=== PATIENT | male | born 1960 | race Caucasian/White ===

== ENCOUNTER 2022-02-20 12:22 | Inpatient (IN) | payer MEDICARE ==
[~2022-02-20 12:22] MED LIST: Iopamidol 370 76% 100 ML VIAL ONE
[2022-02-20] MEDS ORDERED: hydrALAZINE 20 MG/ML VIAL SLOW IVP PRN (12:25)
[2022-02-20] MEDS ORDERED: Calcium Carbonate 500 MG ChewTAB PO PRN (12:27)
[2022-02-20] MEDS ORDERED: Ondansetron PF 4 MG/2 ML Vial IVP PRN (12:27)
[2022-02-20] MEDS ORDERED: Senokot S 8.6-50 MG TAB PO PRN (12:27)
[2022-02-20] MEDS ORDERED: Ondansetron ODT 4 MG TAB PO PRN (12:27)
[2022-02-20] MEDS ORDERED: Acetaminophen 325 MG TAB PO PRN (12:27)
[2022-02-20] MEDS ORDERED: Lorazepam 2 MG/ML VIAL IM PRN (12:29)
[2022-02-20] MEDS ORDERED: Lorazepam 1 MG TAB PO PRN (12:29)
[2022-02-20] MEDS ORDERED: Electrolyte Replacement Protocol 1 EACH FS SCH (12:30)
[2022-02-20] MEDS ORDERED: Folic Acid 1 MG TAB PO SCH (13:00)
[2022-02-20] MEDS ORDERED: Nicotine 14 MG PATCH TD PRN (13:00)
[2022-02-20 14:23] VITALS: BMI 22.6
[2022-02-20] MEDS: Thiamine HCl 200 MG/2 ML VIAL SLOW IVP SCH (14:40)
[2022-02-20] MEDS ORDERED: Meclizine HCl 25 MG TAB PO PRN (18:59)
[2022-02-20 21:38] LABS: Cardiac Risk 6.2 (Less than 4.5)
[2022-02-20] MEDS: Atorvastatin Calcium 40 MG TAB PO SCH (22:21)
[2022-02-20] MEDS: pyridOXINE 50 MG (B6) TAB PO SCH (22:22)
[2022-02-20] MEDS: Heparin 5,000 UNITS/ML VIAL SC SCH (22:22)
[2022-02-20] MEDS: Famotidine 20 MG TAB PO SCH (22:22)
[2022-02-21 05:28] LABS: Anion Gap 12 mmol/L (10-20); BUN (Urea Nitrogen) 12 mg/dL (8.4-25.7); Calc. Creatinine Clearance 81 mL/min (70-130); Calcium 9.1 mg/dL (7.8-10.44); Carbon Dioxide 25 mmol/L (23-31); Chloride 103 mmol/L (98-107); Estimated GFR 98; Glucose 93 mg/dL (80-115); Magnesium 1.8 mg/dL (1.6-2.6); Phosphorus 3.4 mg/dL (2.3-4.7); Potassium 3.8 mmol/L (3.5-5.1); Sodium 136 mmol/L (136-145)
[2022-02-21 05:32] LABS: Cardiac Risk 6.4 (Less than 4.5); Cholesterol 296 mg/dl (< 200 Desired); HDL Cholesterol 46 mg/dL (>60 Neg Risk); LDL Cholesterol, Calculated 223 mg/dL; Triglycerides 137 mg/dL (Less than 150)
[2022-02-21 05:38] LABS: #Eosinphils 0.2 10x3/uL (0.0-0.5); #Monocytes 0.8 10x3/uL (0.0-1.1); #Neutrophils 5.1 10x3/uL (1.5-8.4); %Basophils 0.5 % (0.0-2.0); %Eosinophils 1.9 % (0.0-6.0); %Lymphocytes 23.3 % (18.0-47.0); %Monocytes 10.4 % (0.0-10.0); %Neutrophils 63.5 % (40.0-75.0); Hemoglobin 14.4 g/dL (13.5-17.5); Mean Corpuscular HGB CONC 34.5 g/dL (32.0-36.0); Mean Corpuscular Hemoglobin 29.9 pg (27.0-33.0); Mean Corpuscular Volume 86.5 fl (81.2-95.1); Mean Platelet Volume 9.3 fl (7.4-10.4); Platelet Count 298 10x3/uL (150-450); RBC Distribution Width 13.4 % (11.5-14.5); Red Blood Cell (RBC) Count 4.82 10x6/uL (4.32-5.72)
[2022-02-21] MEDS ORDERED: Magnesium 2 GM/50 ML(in water) 2 GM in Premix Bag 1 BAG IVPB SCH (06:00)
[2022-02-21] MEDS: Multivit, Therapeutic 1 TAB PO SCH (09:32)
[2022-02-21] MEDS: Famotidine 20 MG TAB PO SCH ×2 (09:32→20:32)
[2022-02-21] MEDS: Folic Acid 1 MG TAB PO SCH (09:32)
[2022-02-21] MEDS: Aspirin 81 mg Enteric Coated Tablet PO SCH (09:32)
[2022-02-21] MEDS: Heparin 5,000 UNITS/ML VIAL SC SCH ×2 (09:35→20:33)
[2022-02-21] MEDS ORDERED: Lorazepam 1 MG TAB PO PRN (12:29)
[2022-02-21] MEDS: Thiamine HCl 200 MG/2 ML VIAL SLOW IVP SCH (13:18)
[2022-02-21] MEDS: Atorvastatin Calcium 40 MG TAB PO SCH (20:32)
[2022-02-21] MEDS: pyridOXINE 50 MG (B6) TAB PO SCH (20:32)
[2022-02-21] MEDS: Hydrocortisone 2.5% Cream 30 GM TUBE TOP SCH (20:33)
[2022-02-22] MEDS: Hydrocortisone 2.5% Cream 30 GM TUBE TOP SCH ×2 (09:08→21:02)
[2022-02-22] MEDS: Heparin 5,000 UNITS/ML VIAL SC SCH ×2 (09:09→21:02)
[2022-02-22] MEDS: Folic Acid 1 MG TAB PO SCH (09:09)
[2022-02-22] MEDS: Famotidine 20 MG TAB PO SCH ×2 (09:09→21:02)
[2022-02-22] MEDS: Multivit, Therapeutic 1 TAB PO SCH (09:09)
[2022-02-22] MEDS: Aspirin 81 mg Enteric Coated Tablet PO SCH (09:09)
[2022-02-22] MEDS: Polyethylene Glycol 3350 17 GM Packet PO SCH (09:09)
[2022-02-22] MEDS ORDERED: Lorazepam 1 MG TAB PO PRN (12:29)
[2022-02-22] MEDS ORDERED: Lorazepam 0.5 MG TAB PO SCH (12:30)
[2022-02-22] MEDS: Thiamine HCl 200 MG/2 ML VIAL SLOW IVP SCH (13:07)
[2022-02-22 14:16] LABS: Hemoglobin A1c 5.1 % (4.0-6.0)
[2022-02-22] MEDS: pyridOXINE 50 MG (B6) TAB PO SCH (21:02)
[2022-02-22] MEDS: Atorvastatin Calcium 40 MG TAB PO SCH (21:02)
[2022-02-23] MEDS: Heparin 5,000 UNITS/ML VIAL SC SCH ×2 (09:32→20:40)
[2022-02-23] MEDS: Polyethylene Glycol 3350 17 GM Packet PO SCH (09:32)
[2022-02-23] MEDS: Hydrocortisone 2.5% Cream 30 GM TUBE TOP SCH ×2 (09:32→20:42)
[2022-02-23] MEDS: Aspirin 81 mg Enteric Coated Tablet PO SCH (09:33)
[2022-02-23] MEDS: Multivit, Therapeutic 1 TAB PO SCH (09:33)
[2022-02-23] MEDS: Famotidine 20 MG TAB PO SCH ×2 (09:33→20:39)
[2022-02-23] MEDS: Folic Acid 1 MG TAB PO SCH (09:33)
[2022-02-23] MEDS ORDERED: Polyethylene Glycol 3350 17 GM Packet PO PRN (11:20)
[2022-02-23] MEDS ORDERED: Lorazepam 0.5 MG TAB PO PRN (12:29)
[2022-02-23] MEDS ORDERED: Thiamine 100 MG TAB PO SCH (13:00)
[2022-02-23] MEDS: pyridOXINE 50 MG (B6) TAB PO SCH (20:39)
[2022-02-23] MEDS: Senokot S 8.6-50 MG TAB PO SCH (20:39)
[2022-02-23] MEDS: Atorvastatin Calcium 40 MG TAB PO SCH (20:39)
[2022-02-24] MEDS: Heparin 5,000 UNITS/ML VIAL SC SCH (08:51)
[2022-02-24] MEDS: Polyethylene Glycol 3350 17 GM Packet PO SCH (08:51)
[2022-02-24] MEDS: Senokot S 8.6-50 MG TAB PO SCH (08:52)
[2022-02-24] MEDS: Aspirin 81 mg Enteric Coated Tablet PO SCH (08:52)
[2022-02-24] MEDS: Multivit, Therapeutic 1 TAB PO SCH (08:52)
[2022-02-24] MEDS: Folic Acid 1 MG TAB PO SCH (08:52)
[2022-02-24] MEDS: Famotidine 20 MG TAB PO SCH (08:52)
[2022-02-24] MEDS: Hydrocortisone 2.5% Cream 30 GM TUBE TOP SCH (08:52)
[2022-02-24 12:28] VITALS: BP 138/60; TEMP 98.8
== END 2022-02-24 12:58 | disposition swing bed (61) | DRG 66 ==
LOC: CSHTELE 12:22 → INTOOBSV 12:22 → OBSVTOIN 02-21 07:59
PROVIDERS: ADMIT Internal Medicine; ATTEND Family Medicine
DX: I63.81 Other cerebral infarction due to occlusion or stenosis of small artery (principal); K64.8 Other hemorrhoids; E78.00 Pure hypercholesterolemia, unspecified; M54.9 Dorsalgia, unspecified; G89.29 Other chronic pain; F12.10 Cannabis abuse, uncomplicated; F10.20 Alcohol dependence, uncomplicated; K62.3 Rectal prolapse; F17.210 Nicotine dependence, cigarettes, uncomplicated; R42 Dizziness and giddiness; R53.1 Weakness; C44.311 Basal cell carcinoma of skin of nose; I35.0 Nonrheumatic aortic (valve) stenosis; Z20.822 Contact with and (suspected) exposure to COVID-19; Z91.14 Patient's other noncompliance with medication regimen; Z83.3 Family history of diabetes mellitus; Z71.6 Tobacco abuse counseling; Z82.3 Family history of stroke; Z79.899 Other long term (current) drug therapy
CPT/HCPCS: 36415; 70496; 70498; 70551; 80048; 80061; 82607; 83036; 83735; 84100; 84443; 85025; 87040; 93306; 93880; 94760; 96372; 96374; 96375; G0378; J1644; J3411; J3475; Q9967; U0003; U0005

== ENCOUNTER 2022-03-04 08:56 | Day surgery (SDC) | payer MEDICARE ==
[2022-03-03 11:03] VITALS: BMI 23.3
[~2022-03-04 08:56] MED LIST changes: +Bupivacaine PF 0.5% 30 ML VIAL ONE; +EPINEPHrine 1 MG/ML AMP ONE; -Iopamidol 370 76% 100 ML VIAL ONE; +Lidocaine 2% 6 ML SYR ONE
[2022-03-04] MEDS ORDERED: PROPOFOL 20 ML ONE (10:20)
[2022-03-04] MEDS ORDERED: Fentanyl 250 MCG/5 ML VIAL ONE (10:21)
[2022-03-04] MEDS ORDERED: CEFAZOLIN 2 GM VIAL ONE (10:30)
[2022-03-04] MEDS ORDERED: Acetaminophen 325 MG TAB PO PRN (11:53)
[2022-03-04] MEDS ORDERED: HYDROcodone/Acetaminophen 5/325 mg Tablet PO PRN (11:53)
== END 2022-03-04 12:50 | disposition home or self-care (01) ==
LOC: CSHSDC 08:56
PROVIDERS: ATTEND Surgery
PROC: 06BY0ZC Excision of Hemorrhoidal Plexus, Open Approach (ICD-10-PCS; principal; 2022-03-04)
DX: K64.2 Third degree hemorrhoids (principal); K55.069 Acute infarction of intestine, part and extent unspecified; E78.5 Hyperlipidemia, unspecified; Z87.891 Personal history of nicotine dependence; Z20.822 Contact with and (suspected) exposure to COVID-19; Z86.73 Personal history of transient ischemic attack (TIA), and cerebral infarction without residual deficits; Z79.899 Other long term (current) drug therapy; Z79.82 Long term (current) use of aspirin
CPT/HCPCS: 88304; J0171; J0690; J2704; J3010; S0020